=== PATIENT | female | born 2000 | race Caucasian/White ===

== ENCOUNTER 2024-01-08 19:29 | Emergency (ER) | payer OTHER, SELFPAY ==
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
[2024-01-08 19:41] VITALS: BP 124/85; PULSE 90; RESP 16; TEMP 36.9; O2SAT 100
== END 2024-01-08 20:15 | disposition home or self-care (01) ==
PROVIDERS: Emergency Provider Nurse Practitioner Family; PCP Family Medicine
DX: S09.90XA Unspecified injury of head, initial encounter (principal); Y04.2XXA Assault by strike against or bumped into by another person, initial encounter; Y99.0 Civilian activity done for income or pay; S00.83XA Contusion of other part of head, initial encounter
CPT/HCPCS: 70150; 99203; G0463